=== PATIENT | female | born 1940 | race Caucasian/White ===

== ENCOUNTER 2016-04-04 16:48 | Outpatient (CLI) | payer MEDICARE, OTHER ==
[2016-03-23 17:34] VITALS: BP 115/49
[2016-04-04 17:29] LABS: eGFR (African) > 60; eGFR (Non-African) > 60
== END 2016-04-04 16:53 | disposition home or self-care (01) ==
LOC: LAB 16:48
PROVIDERS: ATTEND Family Medicine
DX: E87.6 Hypokalemia (principal)
CPT/HCPCS: 36415; 80048

== ENCOUNTER 2016-06-10 10:50 | Outpatient (CLI) | payer MEDICARE, OTHER ==
[2016-03-23 17:34] VITALS: BP 115/49
[2016-06-10 11:42] LABS: eGFR (African) > 60; eGFR (Non-African) > 60
== END 2016-06-10 10:52 ==
LOC: LAB 10:50
PROVIDERS: ATTEND Family Medicine
DX: I10 Essential (primary) hypertension (principal); Z51.81 Encounter for therapeutic drug level monitoring; E78.00 Pure hypercholesterolemia, unspecified
CPT/HCPCS: 36415; 80053; 80061